=== PATIENT | female | born 1960 | race Caucasian/White ===

== ENCOUNTER → 2020-11-26 09:03 | Outpatient (CLI) | payer MEDICARE, MEDICAID ==
[2013-08-07 09:16] VITALS: BMI 29.2
--- NOTE | ~2020-11-26 | ST ---
PATIENT:TRINIDAD MCFARLANE MEDICAL RECORD: [id number] SEX: F LOCATION[facility] ORDER #: ADMISSION DATE: 11/26/20 AGE OF PATIENT: 60 REFERRING PHYSICIAN: INTERPRETING PHYSICIAN: YELITZA UMAÑA MD DATE OF SERVICE: 11/26/2020 PROCEDURE: Nuclear stress test. GATED: Normal. Normal wall motion, normal EF, calculated EF 64%. SPECT IMAGING: SPECT imaging was performed. 1. Short axis view shows good uptake along anterior wall, lateral wall, inferior wall. 2. Horizontal axis: Horizontal axis confirms good uptake along anterior wall and inferior wall. 3. Vertical axis: Vertical axis shows good uptake along lateral wall and septum. FINAL IMPRESSION: 1. Normal gated, normal wall motion, normal ejection fraction of 64%. 2. Normal SPECT imaging. FINAL RECOMMENDATIONS: A patient with a known history of coronary artery disease. Scan is quite stable with no evidence of ongoing ischemic areas. LV function remains normal. Continue medical management. Risk factor modification is recommended. TRANSINT:[id number] Voice Confirmation ID: [id number] DOCUMENT ID: [id number] YELITZA UMAÑA MD CC: [id number] DICTATION DATE: 11/27/20 1255 ENERGY CONTROL OFFICER: 11/28/20 0139 DEP CLI 11/26/20 [place] [id number]
[~2020-11-26 09:03] MED LIST: BAYER CHEWABLE81 MG PO; CELEXA10 MG PO; COREG 3.1253.125 MG PO; HYDROCHLOROTH12.5 M1 PO; LISINOPRIL10 MG PO; PLAVIX75 MG PO
== END | disposition home or self-care (01) ==
LOC: D.HCCARDIO 09:03 → D.HCCECHO 11:00
PROVIDERS: ATTEND Internal Medicine Interventional Cardiology
DX: R06.00 Dyspnea, unspecified (principal); I25.10 Atherosclerotic heart disease of native coronary artery without angina pectoris